=== PATIENT | female | born 1990 | race Caucasian/White ===

== ENCOUNTER 2018-07-12 03:47 | Emergency (ER) | payer MEDICAID ==
[~2018-07-12] VITALS: Ht 165.1 cm; Wt 53.5 kg
[2018-07-12 03:59] VITALS: BP_SYST 127
[2018-07-12 05:34] VITALS: BP_SYST 127
== END 2018-07-12 05:34 | disposition home or self-care (01) ==
LOC: SED 03:47
DX: B80 Enterobiasis (principal)
CPT/HCPCS: 87177; 99283

== ENCOUNTER 2018-08-11 22:32 | Emergency (ER) | payer MEDICAID ==
[~2018-08-11] VITALS: Ht 165.1 cm; Wt 53.5 kg
[2018-08-11 22:51] VITALS: BP_SYST 123
== END 2018-08-12 01:08 | disposition left against medical advice (07) ==
LOC: SED 22:32
DX: J02.9 Acute pharyngitis, unspecified (principal); R13.10 Dysphagia, unspecified; M79.602 Pain in left arm; Z53.21 Procedure and treatment not carried out due to patient leaving prior to being seen by health care provider